=== PATIENT | female | born 1995 | race Caucasian/White ===

== ENCOUNTER → 2021-10-31 | Outpatient (CLI) | payer BC, MEDICAID ==
--- NOTE | 2021-10-31 18:26 | Diagnostic Imaging Report ---
INDICATION: , anatomic survey. TECHNIQUE: Multiple real-time grayscale images were obtained over the gravid uterus. COMPARISON: None. FINDINGS: The cervix measures 6 cm in length with no funneling or endocervical fluid appreciated. There is a single live intrauterine gestation in breech presentation. The placenta is posterior without evidence of previa. The heart rate measures 142 BPM. Amniotic fluid index measures 12.8 cm. Anatomic survey is suboptimal due to maternal body habitus. The bladder is seen. Two umbilical arteries are demonstrated consistent with a three-vessel cord, but the cord is not seen in grayscale transverse. The cord insertion is seen. The upper and lower spine are suboptimally visualized. The profile is not well seen. The four-chamber heart and stomach are not well seen. The brain anatomy, kidneys are not seen. Biometrical measurements are as follows: Biparietal 4.16 cm, age 18 weeks 5 days. Head circumference 16.18 cm, age 19 weeks 0 days. Abdominal circumference 15.73 cm, age 21 weeks 0 days. Femur length 3.55 cm, age 21 weeks 2 days. Sonographic estimate age: 20 weeks 0 days. Sonographic estimated date of delivery: 03/20/2022. Estimated Weight: 373 gm (+/- 55 gm). LMP percentile: 84%. heart rate: 142 beats per minute. number: 1 of 1. IMPRESSION: 1. Single live intrauterine gestation measuring at 20 weeks and 0 days. This is concordant with the given clinical dates. 2. Suboptimal anatomic survey due to maternal habitus with multiple structures not seen. No abnormality is identified. 3. Breech presentation. Dictated by: Dictated on workstation # [id number]
== END ==
LOC: RAD 15:15
PROVIDERS: ATTEND Nurse Practitioner Women's Health
DX: O32.1XX0 Maternal care for breech presentation, not applicable or unspecified (principal); Z3A.20 20 weeks gestation of pregnancy
CPT/HCPCS: 76805

== ENCOUNTER 2022-03-20 06:00 | Inpatient (IN) | payer MEDICAID ==
[~2022-03-20] VITALS: Ht 167.7 cm; Wt 117.7 kg
[2022-03-20] VITALS (60 sets, daily range): BP systolic 86–191; BP diastolic 50–147
[2022-03-20] MEDS ORDERED: PREN-142 PO (06:48)
[2022-03-20 07:07] LABS: BASOPHILS % (AUTO) 0 % (0-10); EOSINOPHILS # (AUTO) 0.1 10^3/uL (0.0-0.3); EOSINOPHILS % (AUTO) 1 % (0-10); HEMATOCRIT 31 % (35-52); HEMOGLOBIN 9.7 g/dL (11.5-16.0); LYMPHOCYTES # (AUTO) 1.9 10^3/uL (1.0-4.0); LYMPHOCYTES % (AUTO) 23 % (12-44); MEAN CORPUSCULAR HEMOGLOBIN 25 pg (25-34); MEAN CORPUSCULAR HGB CONC 32 g/dL (32-36); MEAN CORPUSCULAR VOLUME 79 fL (80-99); MEAN PLATELET VOLUME 11.7 fL (9.0-12.2); MONOCYTES # (AUTO) 0.6 10^3/uL (0.0-1.0); MONOCYTES % (AUTO) 8 % (0-12); NEUTROPHILS # (AUTO) 5.5 10^3/uL (1.8-7.8); NEUTROPHILS % (AUTO) 68 % (42-75); PLATELET COUNT 240 10^3/uL (130-400); WHITE BLOOD COUNT 8.1 10^3/uL (4.3-11.0)
[2022-03-20] MEDS: D5 LR IV SOLUTION 1,000 ML IV SCH ×2 (07:34→14:18)
[2022-03-20] MEDS ORDERED: fentaNYL 2 mcg/ml BUPIVA 0.125 100 ML ONE (08:29)
--- NOTE | 2022-03-20 08:52 | History & Physical-OB ---
OB - Chief Complaint & HPI Date/Time Date of Admission: Date of Admission: Mar 20, 2022 at 06:00 Date seen by a Provider: Mar 20, 2022 Time Seen by a Provider: 08:30 Chief Complaint/History OB-Reason for Admission/Chief: Induction of Labor Hx : 8 Hx Para: 2 Expected Date of Delivery: Mar 20, 2022 Gestational Age in Weeks: 40 Gestational Age in Days: 0 Indication for induction: post dates Other reason for admission: TOLAC Admission Nurse Assessment Rev: Yes History of Labs GBS neg Allergies and Home Medications Allergies Coded Allergies: No Known Drug Allergies (Unverified , 03/20/22) Patient Home Medication List Home Medication List Reviewed: Yes Vit No.124/Iron/FA ( Vitamin Tablet) 27 Mg Iron-800 Mcg Tablet, 1 EACH PO DAILY, (Reported) Entered as Reported by: SIXTO TEJADA on 03/20/22647 Last Action: New Order OB - History Hx of Present Care: Yes Ultrasounds: Normal mid trimester US Obstetrical Complications: None Medical Complications: None Patient Past Medical History n/a OB - Admission Exam Physical Exam Vitals: Vital Signs 03/20/22 03/20/22 07:00 07:35 Temp 36.5 Pulse 86 Resp 18 B/P (MAP) 112/71 (85) Pulse Ox 98 O2 Delivery Room Air HEENT: NCAT Heart: Rhythm Normal Lungs: Clear Abdomen: Gravid Extremities: Normal Reflexes: Normal Cervical Dilatation: 2cm Effacement: 75% Station: -1 Membranes: Intact Heart Rate: 130's Accelerations: Accelerations Present Decelerations: No Decelerations Short Term Variability: Present Utilization Management Rn Variability: Average (6-25) Contractions on Admission: 6-10 Minutes Apart Intensity: Mild Labs Laboratory Tests Test 03/20/22 07:03 Range/Units White Blood Count 8.1 4.3-11.0 10^3/uL Red Blood Count 3.84 3.80-5.11 10^6/uL Hemoglobin 9.7 L 11.5-16.0 g/dL Hematocrit 31 L 35-52 % Mean Corpuscular Volume 79 L 80-99 fL Mean Corpuscular Hemoglobin 25 25-34 pg Mean Corpuscular Hemoglobin Concent 32 32-36 g/dL Red Cell Distribution Width 15.2 H 10.0-14.5 % Platelet Count 240 130-400 10^3/uL Mean Platelet Volume 11.7 9.0-12.2 fL Immature Granulocyte % (Auto) 0 % Neutrophils (%) (Auto) 68 42-75 % Lymphocytes (%) (Auto) 23 12-44 % Monocytes (%) (Auto) 8 0-12 % Eosinophils (%) (Auto) 1 0-10 % Basophils (%) (Auto) 0 0-10 % Neutrophils # (Auto) 5.5 1.8-7.8 10^3/uL Lymphocytes # (Auto) 1.9 1.0-4.0 10^3/uL Monocytes # (Auto) 0.6 0.0-1.0 10^3/uL Eosinophils # (Auto) 0.1 0.0-0.3 10^3/uL Basophils # (Auto) 0.0 0.0-0.1 10^3/uL Immature Granulocyte # (Auto) 0.0 0.0-0.1 10^3/uL OB - Assessment/Plan/Diagnosis Assessment Assessment: induction of labor Admission Dx 26 yo @ 40 weeks TOLAC GBS neg Admission Status: Inpatient Order (span 2 midnights) Reason for Inpatient Admission: IOL at 40 weeks Plan Plan: Induction Induction Method: ALEC LEMUS DO Mar 20, 2022 08:52
[2022-03-20] MEDS ORDERED: BUPIVACAINE 0.25% 30 ML (SENSORCAINE) VIAL ONE (09:08)
[2022-03-20] MEDS ORDERED: OXYTOCIN PRE-MIX DRIP 500 ML IV ONE (09:15)
[2022-03-20] MEDS ORDERED: ONDANSETRON 4 MG/2 ML (SDV) Z0FRAN ONE (09:15)
[2022-03-20] MEDS ORDERED: diphenhydrAMINE 50 MG/ML INJ (BENADRYL) IV PRN (09:45)
[2022-03-20] MEDS ORDERED: NALOXONE 0.4 MG/ML 1 ML (NARCAN) VIAL IV PRN ×3 (09:45→18:00)
[2022-03-20] MEDS ORDERED: LACTATED RINGERS 1,000 ML IV SCH (09:45)
[2022-03-20] MEDS ORDERED: EPIDURAL (fentaNYL 2 MCG/ML BUPIVA 0.125%)100 ML BAG EPI PRN (09:45)
[2022-03-20] MEDS ORDERED: ONDANSETRON 4 MG/2 ML (SDV) Z0FRAN IV PRN (09:45)
[2022-03-20] MEDS ORDERED: METOCLOPRAMIDE INJ 10 MG/2 ML (REGLAN) IV PRN (09:45)
[2022-03-20] MEDS ORDERED: OXYTOCIN PRE-MIX DRIP 500 ML IV SCH ×2 (10:15→18:00)
[2022-03-20] MEDS ORDERED: CATHETER FLUSH 10 ML SYR IV SCH ×2 (14:00→22:00)
[2022-03-20] MEDS ORDERED: LIDOCAINE/EPI 2% 1:200,00 (XYLOCAINE) 10 ML VIAL ONE (17:31)
--- NOTE | 2022-03-20 17:51 | OB Labor & Delivery Record ---
L&D History Date of Service Date of Service: Mar 20, 2022 History Expected Date of Delivery: Mar 20, 2022 Gestational Age in Weeks: 40 Hx : 8 Hx Para: 2 Complications Events: Routine care Operative Indications (Cesarea: N/A-Vaginal Delivery Intrapartal Events: None L&D Stage1 Stage One Onset of Labor - Date: Mar 20, 2022 Monitors and Tracing Monitor Mode: External Heart Rate: 115 Station: -1 Vital Signs VS - Last 72 Hours, by Label 03/20/22 03/20/22 03/20/22 03/20/22 07:00 07:35 08:00 08:05 Temp 36.6 36.5 36.5 Pulse 111 86 86 104 Resp 18 18 18 18 B/P (MAP) 101/55 (70) 112/71 (85) 108/74 (85) Pulse Ox 98 98 O2 Delivery Room Air Room Air Room Air 03/20/22 03/20/22 03/20/22 03/20/22 08:35 09:00 09:05 09:10 Pulse 96 99 88 127 Resp 18 18 18 18 B/P (MAP) 118/77 (91) 122/73 (89) 118/73 (88) 93/51 (65) Pulse Ox 100 99 100 O2 Delivery Room Air Room Air Room Air Room Air 03/20/22 03/20/22 03/20/22 03/20/22 09:11 09:14 09:15 09:17 Pulse 124 115 115 111 Resp 18 18 18 18 B/P (MAP) 86/50 (62) 137/83 (101) 137/83 (101) 158/82 (107) Pulse Ox 100 100 100 O2 Delivery Room Air Room Air Room Air 03/20/22 03/20/22 03/20/22 03/20/22 09:20 09:25 09:30 10:00 Pulse 123 131 122 102 Resp 18 18 18 18 B/P (MAP) 138/85 (102) 125/70 (88) 114/64 (81) 124/74 (91) Pulse Ox 100 100 100 100 O2 Delivery Room Air Room Air Room Air Room Air 03/20/22 03/20/22 03/20/22 03/20/22 10:15 10:30 10:45 11:00 Pulse 106 98 92 94 Resp 18 18 18 18 B/P (MAP) 129/71 (90) 129/71 (90) 118/70 (86) 121/70 (87) Pulse Ox 98 100 98 98 O2 Delivery Room Air Room Air Room Air Room Air 03/20/22 03/20/22 03/20/22 03/20/22 11:15 11:30 11:45 12:00 Pulse 88 105 94 98 Resp 18 18 18 18 B/P (MAP) 129/64 (85) 124/63 (83) 114/67 (83) 113/65 (81) Pulse Ox 96 98 98 97 O2 Delivery Room Air Room Air Room Air Room Air 03/20/22 03/20/22 03/20/22 03/20/22 12:15 12:30 12:45 13:00 Pulse 82 93 100 96 Resp 18 18 18 18 B/P (MAP) 119/69 (86) 122/69 (86) 124/66 (85) 134/62 (86) Pulse Ox 97 99 100 100 O2 Delivery Room Air Room Air Room Air Room Air 03/20/22 03/20/22 03/20/22 03/20/22 13:13 13:15 13:30 13:45 Temp 35.6 Pulse 97 93 85 Resp 18 18 18 B/P (MAP) 114/67 (83) 127/66 (86) 132/57 (82) Pulse Ox 100 97 100 O2 Delivery Room Air Room Air Room Air 03/20/22 03/20/22 03/20/22 03/20/22 14:00 14:15 14:30 14:45 Pulse 90 89 87 98 Resp 18 18 18 18 B/P (MAP) 126/79 (95) 125/74 (91) 129/76 (93) 132/81 (98) Pulse Ox 98 98 99 99 O2 Delivery Room Air Room Air Room Air Room Air 03/20/22 03/20/22 03/20/22 03/20/22 15:00 15:15 15:30 15:45 Pulse 101 100 114 116 Resp 18 18 18 18 B/P (MAP) 127/75 (92) 121/75 (90) 121/84 (96) 120/74 (89) Pulse Ox 100 100 100 100 O2 Delivery Room Air Room Air Room Air Room Air 03/20/22 03/20/22 03/20/22 03/20/22 16:00 16:15 16:30 16:45 Pulse 104 104 88 93 Resp 18 18 18 18 B/P (MAP) 121/82 (95) 121/82 (95) 120/72 (88) 125/74 (91) Pulse Ox 100 100 100 100 O2 Delivery Room Air Room Air Room Air Room Air 03/20/22 17:00 Pulse 98 Resp 18 B/P (MAP) 114/64 (81) Pulse Ox 99 O2 Delivery Room Air Rupture of Membranes Spontaneous Ruture of Membrane: No Amniotic Membrane Rupture Time: 08 Amniotic Membrane Fluid Desc.: Clear Vaginal Bleeding Description: Normal Show Induction/Anesthesia Epidural Cath Placement - Time: 0902 Progress/Notes Patient admitted for TOLAC IOL, AROM performed and pitocin started after epidural placed. She progressed to complete and +1 station with max dose of 16 mu reached. L&D Stage2 Stage Two Stage II Date: Mar 20, 2022 Monitors and Tracing Monitor Mode: External Heart Rate: 115 Monitor Accelerations: Uniform Monitor Decelerations: Variable [facility] Variability: Average (6-10) Short Term Variability: Present Position: Right Occiput Anterior Presentation: Vertex Cord Descript/Complications Cord Vessel Description: 3 Vessels Complications nuchal cord reduced x 2 Delivery Type Infant Delivery Method: Spontaneous Vaginal Anterior Shoulder: Left Episiotomy/Perineal Laceration Laceraction(s)/Extensions: Yes Episiotomy Description: Vaginal Extension/lac, 1st degree Degree (describe repair) repaired using 3-0 rapide in usual fashion Condition of Infant Delivery 1 minute Comment: 9 5 minute Comment: 9 Notes Live female infant weight 7lbs 8 oz Condition of Infant Condition of : Living Exam: No Observed Abnormalities Resuscitation Resuscitation: N/A - Spontaneous Resp L&D Stage3 Stage Three Stage III Date: Mar 20, 2022 Pictocin Pitocin Administration mu/min: 16 Pitocin ml/hr: 16 Pitocin Administration Comment: 30 mu wide open after delivery of placenta Placenta Delivery Placenta Delivery: Spontaneous Delivery Summary Summary Estimated blood loss (mL): 350 Attending at delivery: Alec Gonzales DO Condition of Delivery Examined: Cervix Examined, Uterus Explored Post Hemorrhage: No Condition of Mother stable Condition of Infant (s) stable ALEC GONZALES DO Mar 20, 2022 17:51
--- NOTE | 2022-03-20 17:55 | Discharge Inst-Women's Service ---
Discharge Inst-Women's Serv Depart Medication/Instructions New, Converted or Re-Newed RX: Transmitted to Pharmacy Final Diagnosis PPD 1 Problems Reviewed?: Yes Consults/Follow Up Additional Follow Up: Yes Orders/Referrals Dr. Gonzales/Ghislaine in 6 weeks Activity Activity: Activity as Tolerated Driving Instructions: No Driving for 1 Week NO SMOKING: NO SMOKING Nothing Inside Vagina: No Douching, No Baldwin, No Tampons Diet Discharge Diet: No Restrictions Symptoms to Report to : Bleeding Excessive, Pain Increased, Fever Over 101 Degrees F, Vaginal Bleeding Increase, Questions/Concerns For Any Problems or Questions: Contact Your Physician ALEC GONZALES DO Mar 20, 2022 17:55
[2022-03-20] MEDS ORDERED: BENZOCAINE/MENTHOL (DERMOPLAST) 56 ML CAN TP PRN (18:00)
[2022-03-20] MEDS ORDERED: MEASLES,MUMPS,RUBELLA 1 EA INJ SQ ONE (18:00)
[2022-03-20] MEDS ORDERED: TETANUS,DIPTH,PERTUSS P/F (BOOSTRIX) 0.5 ML VIAL IM ONE (18:00)
[2022-03-20] MEDS ORDERED: WITCH HAZEL(TUCKS) 40 EA JAR TOP PRN (18:00)
[2022-03-20] MEDS ORDERED: HYDROcodone/APAP 5 MG/325 MG (LORTAB) TAB PO PRN (18:00)
[2022-03-20] MEDS ORDERED: BENZ78AE5 TP (18:08)
[2022-03-20] MEDS ORDERED: DOCU100C37 PO (18:08)
[2022-03-20] MEDS ORDERED: ACHD5005 PO (18:08)
[2022-03-20] MEDS ORDERED: FERR325T24 PO (18:08)
[2022-03-20] MEDS ORDERED: IBUP-844 PO (18:08)
[2022-03-20] MEDS: IBUPROFEN 600 MG (MOTRIN) TAB PO SCH ×2 (18:49→23:56)
[2022-03-20] MEDS: DOCUSATE SODIUM 100 MG (COLACE) CAP PO SCH (22:16)
[2022-03-21] MEDS ORDERED: ACETAMINOPHEN 500 MG TAB (TYLENOL) PO PRN (01:45)
[2022-03-21 05:00] VITALS: BP 106/72
[2022-03-21] MEDS: IBUPROFEN 600 MG (MOTRIN) TAB PO SCH ×3 (05:19→19:33)
[2022-03-21 05:37] LABS: BASOPHILS % (AUTO) 0 % (0-10); EOSINOPHILS % (AUTO) 0 % (0-10); HEMATOCRIT 28 % (35-52); HEMOGLOBIN 8.7 g/dL (11.5-16.0); LYMPHOCYTES # (AUTO) 1.7 10^3/uL (1.0-4.0); LYMPHOCYTES % (AUTO) 16 % (12-44); MEAN CORPUSCULAR HEMOGLOBIN 25 pg (25-34); MEAN CORPUSCULAR HGB CONC 31 g/dL (32-36); MEAN CORPUSCULAR VOLUME 82 fL (80-99); MONOCYTES # (AUTO) 0.8 10^3/uL (0.0-1.0); MONOCYTES % (AUTO) 7 % (0-12); NEUTROPHILS # (AUTO) 7.9 10^3/uL (1.8-7.8); NEUTROPHILS % (AUTO) 76 % (42-75); PLATELET COUNT 186 10^3/uL (130-400); WHITE BLOOD COUNT 10.5 10^3/uL (4.3-11.0)
[2022-03-21] MEDS ORDERED: PRENATAL VITAMIN 1 EA TAB PO SCH (07:00)
[2022-03-21 07:55] VITALS: BP 115/58
[2022-03-21] MEDS: DOCUSATE SODIUM 100 MG (COLACE) CAP PO SCH (07:55)
[2022-03-21] MEDS ORDERED: FERROUS SULF 325 MG (IRON) TAB PO SCH (09:00)
--- NOTE | 2022-03-21 09:05 | Anesthesia-Regional Post-Op ---
Regional Patient Condition Mental Status: Alert, Oriented x3 Circulation: Same as Pre-Op Headache: Absent Sensation: Full Recovery Motor Block: Absent Post Op Complications Complications None Follow Up Care/Instructions Patient Instructions None needed. Anesthesia/Patient Condition Patient is doing well, no complaints, stable vital signs, no apparent adverse anesthesia problems. No complications reported per nursing. D/C home per [facility] [place] Criteria: Yes CAROL SERRANO CRNA Mar 21, 2022 09:05
--- NOTE | 2022-03-21 10:09 | Postpartum Progress Note ---
Note Note Day # 1 Subjective: Patient is without complaints. Ambulating, voiding. Tolerating a regular diet without nausea or vomiting. Normal lochia. Pain is well controlled with oral pain medications. Physical Exam: General - Alert and oriented, no apparent distress Abdomen - Soft, appropriately tender to palpation, non-distended, fundus firm at umbilicus Extremities - no edema, negative Liza's bilaterally Assessment: Post- day # 1, status post . Recovering well, hemodynamically stable Acute blood loss anemia Plan: Routine care. Encourage breast feeding. Encourage ambulation. Ferrous sulfate supplementation. Plan for discharge today Vitals - Labs Vital Signs - I&O Vital Signs Date Time Temp Pulse Resp B/P (MAP) Pulse Ox O2 Delivery O2 Flow Rate FiO2 03/21/22 07:55 36.2 85 18 115/58 (77) 98 Room Air 03/21/22 05:00 36.1 83 18 106/72 (83) 96 Room Air 03/20/22 23:56 36.0 96 18 108/59 (75) 96 Room Air 03/20/22 21:30 36.3 96 18 103/56 (72) Room Air 03/20/22 21:00 96 18 101/59 (73) Room Air 03/20/22 20:30 36.6 80 18 128/80 (96) Room Air 03/20/22 20:00 104 18 121/61 (81) Room Air 03/20/22 19:45 109 18 123/58 (79) Room Air 03/20/22 19:30 36.6 102 18 122/57 (78) Room Air 03/20/22 19:15 95 18 131/65 (87) Room Air 03/20/22 19:00 95 18 129/74 (92) Room Air 03/20/22 18:45 36.1 103 18 118/62 (80) Room Air 03/20/22 18:30 100 18 144/71 (95) Room Air 03/20/22 18:15 117 18 138/62 (87) Room Air 03/20/22 18:00 107 18 130/73 (92) Room Air 03/20/22 17:45 106 18 118/56 (76) Room Air 03/20/22 17:44 110 18 191/147 (162) Room Air 7/20/22 17:15 107 18 112/72 (85) 100 Room Air 03/20/22 17:00 98 18 114/64 (81) 99 Room Air 03/20/22 16:45 93 18 125/74 (91) 100 Room Air 03/20/22 16:30 88 18 120/72 (88) 100 Room Air 03/20/22 16:15 104 18 121/82 (95) 100 Room Air 03/20/22 16:00 104 18 121/82 (95) 100 Room Air 03/20/22 15:45 116 18 120/74 (89) 100 Room Air 03/20/22 15:30 114 18 121/84 (96) 100 Room Air 03/20/22 15:15 100 18 121/75 (90) 100 Room Air 03/20/22 15:00 101 18 127/75 (92) 100 Room Air 03/20/22 14:45 98 18 132/81 (98) 99 Room Air 03/20/22 14:30 87 18 129/76 (93) 99 Room Air 03/20/22 14:15 89 18 125/74 (91) 98 Room Air 03/20/22 14:00 90 18 126/79 (95) 98 Room Air 03/20/22 13:45 85 18 132/57 (82) 100 Room Air 03/20/22 13:30 93 18 127/66 (86) 97 Room Air 03/20/22 13:15 97 18 114/67 (83) 100 Room Air 03/20/22 13:13 35.6 03/20/22 13:00 96 18 134/62 (86) 100 Room Air 03/20/22 12:45 100 18 124/66 (85) 100 Room Air 03/20/22 12:30 93 18 122/69 (86) 99 Room Air 03/20/22 12:15 82 18 119/69 (86) 97 Room Air 03/20/22 12:00 98 18 113/65 (81) 97 Room Air 03/20/22 11:45 94 18 114/67 (83) 98 Room Air 03/20/22 11:30 105 18 124/63 (83) 98 Room Air 03/20/22 11:15 88 18 129/64 (85) 96 Room Air 03/20/22 11:00 94 18 121/70 (87) 98 Room Air 03/20/22 10:45 92 18 118/70 (86) 98 Room Air 03/20/22 10:30 98 18 129/71 (90) 100 Room Air 03/20/22 10:15 106 18 129/71 (90) 98 Room Air I & O 03/21/22 07:00 Intake Total 3000 ml Balance 3000 ml Labs Laboratory Tests 03/21/22 05:17: White Blood Count 10.5, Red Blood Count 3.44L, Hemoglobin 8.7L, Hematocrit 28L, Mean Corpuscular Volume 82, Mean Corpuscular Hemoglobin 25, Mean Corpuscular Hemoglobin Concent 31L, Red Cell Distribution Width 15.3H, Platelet Count 186, Mean Platelet Volume 11.0, Immature Granulocyte % (Auto) 0, Neutrophils (%) (Auto) 76H, Lymphocytes (%) (Auto) 16, Monocytes (%) (Auto) 7, Eosinophils (%) (Auto) 0, Basophils (%) (Auto) 0, Neutrophils # (Auto) 7.9H, Lymphocytes # (Auto) 1.7, Monocytes # (Auto) 0.8, Eosinophils # (Auto) 0.0, Basophils # (Auto) 0.0, Immature Granulocyte # (Auto) 0.0 MICK MORALES MOVIE WRITER Mar 21, 2022 10:09
[2022-03-21 16:20] VITALS: BP 128/80
[2022-03-21 19:36] VITALS: BP 113/68
[2022-03-21 20:15] VITALS: BP 113/68
== END 2022-03-21 20:15 | disposition home or self-care (01) | DRG 806 ==
LOC: LDRP 06:00
PROVIDERS: ADMIT Obstetrics & Gynecology; ATTEND Obstetrics & Gynecology
PROC: 10E0XZZ Delivery of Products of Conception, External Approach (ICD-10-PCS; principal; 2022-03-20)
PROC: 10907ZC Drainage of Amniotic Fluid, Therapeutic from Products of Conception, Via Natural or Artificial Opening (ICD-10-PCS; 2022-03-20)
PROC: 3E033VJ Introduction of Other Hormone into Peripheral Vein, Percutaneous Approach (ICD-10-PCS; 2022-03-20)
PROC: 0HQ9XZZ Repair Perineum Skin, External Approach (ICD-10-PCS; 2022-03-20)
DX: O48.0 Post-term pregnancy (principal); D62 Acute posthemorrhagic anemia; Z37.0 Single live birth; Z3A.40 40 weeks gestation of pregnancy; O70.0 First degree perineal laceration during delivery; O69.81X0 Labor and delivery complicated by cord around neck, without compression, not applicable or unspecified; O90.81 Anemia of the puerperium
CPT/HCPCS: 36415; 85025; 86850; 86900; 86901

== ENCOUNTER → 2022-06-06 | Outpatient (CLI) | payer MEDICAID ==
[~2022-06-06] MED LIST: ACHD5005 PO; BENZ78AE5 TP; DOCU100C37 PO; FERR325T24 PO; IBUP-844 PO; PREN-142 PO
== END ==
LOC: LAB FS 14:51
PROVIDERS: ATTEND Obstetrics & Gynecology
DX: Z32.01 Encounter for pregnancy test, result positive (principal)
CPT/HCPCS: 36415; 84702

== ENCOUNTER 2022-06-28 11:52 | Emergency (ER) | payer MEDICAID ==
--- NOTE | 2022-06-28 12:22 | ED GI ---
General Chief Complaint: Rect Problems Stated Complaint: BLOODY STOOL Nursing Triage Note: PT REPORTS SHE HAS BEEN HAVING TROUBLE WITH CONSTIPATION AND THIS AM SHE HAD SOME BRIGHT RED BLOOD IN HER STOOL. History of Present Illness Date Seen by Provider: Jun 28, 2022 Time Seen by Provider: 12:20 Initial Comments 26-year-old female here for complaints of diarrhea abdominal pain and bloody stool this morning. Patient is about 5 weeks . States that she woke up with abdominal pain and bloody stool this morning. Feels the toilet. Did just have a baby in March. Patient does not have any fever but is having some cold chills. Some appetite but feels nauseous as well. No vomiting. Does not feel urinary symptoms. Allergies and Home Medications Allergies Coded Allergies: No Known Drug Allergies (Unverified , 03/20/22) Patient Home Medication List Home Medication List Reviewed: Yes Benzocaine/Menthol (Dermoplast Pain Relieving Ackerman) 20 %-0.5 % Aerosol, 56 EA TP UD PRN for PAIN- SEE INSTRUCTIONS Prescribed by: ALEC GONZALES on 03/20/221807 Docusate Sodium (Docusate Sodium) 100 Mg Capsule, 100 MG PO BID PRN for CONSTIPATION-1ST LINE Prescribed by: ALEC GONZALES on 03/20/221807 Ferrous Sulfate (Ferosul) 325 Mg (65 Mg Iron) Tablet, 325 MG PO DAILY Prescribed by: ALEC GONZALES on 03/20/221807 Hydrocodone Bit/Acetaminophen (HYDROcodone/APAP 5 MG/325 MG TAB) 1 Tab Tab, 1 EA PO Q4H PRN for PAIN-MODERATE (5-7) Prescribed by: ALEC GONZALES on 03/20/221807 Ibuprofen (Ibu) 600 Mg Tablet, 600 MG PO Q6H Prescribed by: ALEC GONZALES on 03/20/221807 Vit No.124/Iron/FA ( Vitamin Tablet) 27 Mg Iron-800 Mcg Tablet, 1 EACH PO DAILY, (Reported) Entered as Reported by: SIXTO TEJADA on 03/20/22 0648 Review of Systems Review of Systems Constitutional: see HPI Past [id number] Hx Patient Social History Tobacco Use?: Yes Tobacco type used: Cigarettes Smoking Status: Current Someday Smoker Use of E-Cig and/or Vaping dev: No Substance use?: No Alcohol Use?: No Pt feels they are or have been: No Immunizations Up To Date First/Initial COVID19 Vaccinat: DATE UNKNOWN Second COVID19 Vaccination Gasper: DATE UNKNOWN Past Medical History Last Menstrual Period: May 24, 2022 Physical Exam Vital Signs Vital Signs - First Documented 06/28/22 12:01 Temp 36.0 Pulse 87 Resp 16 B/P (MAP) 141/79 (99) Pulse Ox 99 O2 Delivery Room Air Capillary Refill : Less Than 3 Seconds Height/Weight/BMI Height: '" Weight: lbs. oz. kg; 41.85 BMI Method: General Appearance: WD/WN, no apparent distress HEENT: PERRL/EOMI, pharynx normal Respiratory: chest non-tender, lungs clear Cardiovascular: regular rate, rhythm, no murmur Gastrointestinal: tenderness (Lower abdomen) Neurologic/Psychiatric: alert, normal mood/affect Skin: normal color, warm/dry Progress/Results/Core Measures Results/Orders Lab Results Laboratory Tests Test 06/28/22 12:35 06/28/22 13:00 Range/Units White Blood Count 12.0 H 4.3-11.0 10^3/uL Red Blood Count 4.50 3.80-5.11 10^6/uL Hemoglobin 11.7 11.5-16.0 g/dL Hematocrit 35 35-52 % Mean Corpuscular Volume 79 L 80-99 fL Mean Corpuscular Hemoglobin 26 25-34 pg Mean Corpuscular Hemoglobin Concent 33 32-36 g/dL Red Cell Distribution Width 15.9 H 10.0-14.5 % Platelet Count 271 130-400 10^3/uL Mean Platelet Volume 10.9 9.0-12.2 fL Immature Granulocyte % (Auto) 0 % Neutrophils (%) (Auto) 88 H 42-75 % Lymphocytes (%) (Auto) 8 L 12-44 % Monocytes (%) (Auto) 3 0-12 % Eosinophils (%) (Auto) 0 0-10 % Basophils (%) (Auto) 0 0-10 % Neutrophils # (Auto) 10.5 H 1.8-7.8 10^3/uL Lymphocytes # (Auto) 0.9 L 1.0-4.0 10^3/uL Monocytes # (Auto) 0.4 0.0-1.0 10^3/uL Eosinophils # (Auto) 0.0 0.0-0.3 10^3/uL Basophils # (Auto) 0.0 0.0-0.1 10^3/uL Immature Granulocyte # (Auto) 0.0 0.0-0.1 10^3/uL Neutrophils % (Manual) 89 % Lymphocytes % (Manual) 6 % Monocytes % (Manual) 4 % Band Neutrophils 1 % Platelet Estimate NORMAL Microcytosis 1+ Sodium Level 136 135-145 MMOL/L Potassium Level 3.8 3.6-5.0 MMOL/L Chloride Level 104 98-107 MMOL/L Carbon Dioxide Level 20 L 21-32 MMOL/L Anion Gap 12 5-14 MMOL/L Blood Urea Nitrogen 10 7-18 MG/DL Creatinine 0.58 L 0.60-1.30 MG/DL Estimat Glomerular Filtration Rate 127 BUN/Creatinine Ratio 17 Glucose Level 113 H 70-105 MG/DL Calcium Level 8.8 8.5-10.1 MG/DL Corrected Calcium 8.7 8.5-10.1 MG/DL Total Bilirubin 0.3 0.1-1.0 MG/DL Aspartate Amino Transf (AST/SGOT) 20 5-34 U/L Alanine Aminotransferase (ALT/SGPT) 21 0-55 U/L Alkaline Phosphatase 76 40-136 U/L Total Protein 7.3 6.4-8.2 GM/DL Albumin 4.1 3.2-4.5 GM/DL Lipase 18 8-78 U/L Serum Test, Qualitative POSITIVE NEGATIVE Urine Color YELLOW Urine Clarity SL CLOUDY Urine pH 5.5 5-9 Urine Specific [place] 1.015 L 1.016-1.022 Urine Protein NEGATIVE NEGATIVE Urine Glucose (UA) NEGATIVE NEGATIVE Urine Ketones TRACE H NEGATIVE Urine Nitrite NEGATIVE NEGATIVE Urine Bilirubin NEGATIVE NEGATIVE Urine Urobilinogen 0.2 < = 1.0 MG/DL Urine Leukocyte Esterase NEGATIVE NEGATIVE Urine RBC (Auto) NEGATIVE NEGATIVE Urine RBC NONE /HPF Urine WBC RARE /HPF Urine Squamous Epithelial Cells 10-25 H /HPF Urine Crystals NONE /LPF Urine Bacteria NEGATIVE /HPF Urine Casts NONE /LPF Urine Mucus SMALL H /LPF Urine Culture Indicated NO My Orders Orders - ELIDA BRINK MD Cbc And Manual Diff (06/28/22 12:21) Comprehensive Metabolic Panel (06/28/22 12:21) Lipase (06/28/22 12:21) Occult Blood Stool (06/28/22 12:21) Hcg,Qualitative Serum (06/28/22 12:21) Urinalysis (06/28/22 13:01) Acetaminophen Tablet/Caplet (Tylenol T (06/28/22 13:30) Medications Given in ED Vital Signs/I&O 06/28/22 06/28/22 12:01 14:44 Temp 36.0 36.0 Pulse 87 72 Resp 16 16 B/P (MAP) 141/79 (99) 132/76 Pulse Ox 99 99 O2 Delivery Room Air Room Air Blood Pressure Mean: 99 Progress Progress Note : Time: 14:30 Progress Note no gross blood per evaluate. hemmocult was positive. unable to do CT/Xray due to . recommend pcm follow up. if gross blood returns, return to ER. Diagnostic Imaging Diagonstic Imaging: Ultrasound Departure Impression Primary Impression: Blood in stool Additional Impression: Abdominal pain Qualified Codes: R10.30 - Lower abdominal pain, unspecified Disposition: 01 HOME, SELF-CARE Condition: Stable Departure-Patient Inst. Decision time for Depature: 14:44 Referrals: NO,LOCAL PHYSICIAN (PCP/Family) Primary Care Physician Patient Instructions: Abdominal Pain, Adult ED, Bloody Stools, Adult ED Add. Discharge Instructions: Tylenol for pain. Get ultrasound done. Follow-up with primary care doctor. ER as needed All discharge instructions reviewed with patient and/or family. Voiced understanding. ELIDA BRINK MD Jun 28, 2022 12:22
[2022-06-28 12:41] LABS: BASOPHILS % (AUTO) 0 % (0-10); EOSINOPHILS % (AUTO) 0 % (0-10); HEMATOCRIT 35 % (35-52); HEMOGLOBIN 11.7 g/dL (11.5-16.0); LYMPHOCYTES # (AUTO) 0.9 10^3/uL (1.0-4.0); LYMPHOCYTES % (AUTO) 8 % (12-44); MEAN CORPUSCULAR HEMOGLOBIN 26 pg (25-34); MEAN CORPUSCULAR HGB CONC 33 g/dL (32-36); MEAN CORPUSCULAR VOLUME 79 fL (80-99); MEAN PLATELET VOLUME 10.9 fL (9.0-12.2); MONOCYTES # (AUTO) 0.4 10^3/uL (0.0-1.0); MONOCYTES % (AUTO) 3 % (0-12); NEUTROPHILS # (AUTO) 10.5 10^3/uL (1.8-7.8); NEUTROPHILS % (AUTO) 88 % (42-75); PLATELET COUNT 271 10^3/uL (130-400)
[2022-06-28 12:55] LABS: BAND NEUTROPHILS 1 %; LYMPHOCYTES % (MANUAL) 6 %; MONOCYTES % (MANUAL) 4 %; NEUTROPHILS % (MANUAL) 89 %
[2022-06-28 12:56] LABS: MICROCYTOSIS 1+; PLATELET ESTIMATE NORMAL
[2022-06-28 13:04] LABS: ALBUMIN 4.1 GM/DL (3.2-4.5); BILIRUBIN,TOTAL 0.3 MG/DL (0.1-1.0); CALCIUM 8.8 MG/DL (8.5-10.1); CREATININE SERUM 0.58 MG/DL (0.60-1.30); POTASSIUM 3.8 MMOL/L (3.6-5.0); TOTAL PROTEIN 7.3 GM/DL (6.4-8.2)
[2022-06-28 13:22] LABS: BILIRUBIN,URINE NEGATIVE (NEGATIVE); CLARITY,URINE SL CLOUDY; COLOR,URINE YELLOW; GLUCOSE, URINE (UA) NEGATIVE (NEGATIVE); KETONES,URINE TRACE (NEGATIVE); LEUKOCYTE ESTERASE ,URINE NEGATIVE (NEGATIVE); NITRITE,URINE NEGATIVE (NEGATIVE); PH,URINE 5.5 (5-9); PROTEIN,URINE NEGATIVE (NEGATIVE)
[2022-06-28 13:29] LABS: BACTERIA,URINE NEGATIVE /HPF; WBC,URINE RARE /HPF
[2022-06-28] MEDS ORDERED: ACETAMINOPHEN 325 MG TABLET PO ONE (13:30)
[2022-06-28 14:44] VITALS: BP 132/76
== END 2022-06-28 14:46 | disposition home or self-care (01) ==
LOC: EDUNIT# 11:52 → ER FS 11:54
DX: O99.611 Diseases of the digestive system complicating pregnancy, first trimester (principal); K92.1 Melena; O26.891 Other specified pregnancy related conditions, first trimester; R10.30 Lower abdominal pain, unspecified; O99.331 Smoking (tobacco) complicating pregnancy, first trimester; F17.210 Nicotine dependence, cigarettes, uncomplicated; Z3A.01 Less than 8 weeks gestation of pregnancy
CPT/HCPCS: 80053; 81000; 82274; 83690; 84703; 85027

== ENCOUNTER 2022-08-09 20:53 | Emergency (ER) | payer MEDICAID ==
[~2022-08-09] VITALS: Ht 168 cm; Wt 117.7 kg
[2022-08-09 21:38] LABS: BASOPHILS % (AUTO) 0 % (0-10); EOSINOPHILS # (AUTO) 0.1 10^3/uL (0.0-0.3); EOSINOPHILS % (AUTO) 1 % (0-10); HEMATOCRIT 34 % (35-52); HEMOGLOBIN 11.1 g/dL (11.5-16.0); LYMPHOCYTES # (AUTO) 1.9 10^3/uL (1.0-4.0); LYMPHOCYTES % (AUTO) 20 % (12-44); MEAN CORPUSCULAR HEMOGLOBIN 26 pg (25-34); MEAN CORPUSCULAR HGB CONC 33 g/dL (32-36); MEAN CORPUSCULAR VOLUME 81 fL (80-99); MEAN PLATELET VOLUME 10.1 fL (9.0-12.2); MONOCYTES # (AUTO) 0.5 10^3/uL (0.0-1.0); MONOCYTES % (AUTO) 5 % (0-12); NEUTROPHILS % (AUTO) 74 % (42-75); PLATELET COUNT 248 10^3/uL (130-400); WHITE BLOOD COUNT 9.6 10^3/uL (4.3-11.0)
[2022-08-09 21:51] LABS: INR 0.9 (0.8-1.4); PROTHROMBIN TIME PATIENT 12.9 SEC (12.2-14.7)
[2022-08-09 21:56] LABS: ALBUMIN 4.1 GM/DL (3.2-4.5); BILIRUBIN,TOTAL 0.2 MG/DL (0.1-1.0); CREATININE SERUM 0.71 MG/DL (0.60-1.30); POTASSIUM 3.4 MMOL/L (3.6-5.0); TOTAL PROTEIN 7.2 GM/DL (6.4-8.2)
[2022-08-09] MEDS ORDERED: NS IV 1000 ML 1,000 ML IV SCH (22:00)
--- NOTE | 2022-08-09 22:04 | ED GU-Female ---
General Chief Complaint: OB < 20 WEEKS Stated Complaint: MISCARRIAGE PASSING LARGE CLOTS Nursing Triage Note: reports approx. 6 weeks with vaginal bleeding x1 week. bleeding worsened tonight approx. 1700. pt repots using 4 pads since 1700. Source: patient Exam Limitations: no limitations (KYLE DALY APRN) History of Present Illness Date Seen by Provider: Aug 09, 2022 Time Seen by Provider: 21:15 Initial Comments Patient is a 26-year-old female who presents to the emergency department for evaluation of worsening vaginal bleeding and lower abdominal cramping. Patient is a G9, P3 female who is currently . She is unsure of her gestational development at this time. She gave on March 20 and never had a period between then and when her positive test was noted. She states she did have an ultrasound at her [facility]'s office on July 16 that noted intrauterine twin . She states that they were unable to give her an estimation of her gestation at that time. She states that she began having some light pink vaginal discharge on Friday but it significantly increased at approximately 5 PM tonight. She states she has passed several clots and saturated 4-5 pads since the bleeding began. She states she has also had some lightheadedness. She denies any significant shortness of air, syncope, vision change. 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 She denies any history of coagulopathies or bleeding diatheses. She is currently not on any anticoagulants and states the only medicine she takes normally is vitamins. Dr. Albarado is her primary [facility] who she last saw at the appointment where her ultrasound was obtained on July 16. She states she has a follow-up appointment on August 15 where they are reportedly going to obtain another ultrasound. (KYLE DALY APRN) Allergies and Home Medications Allergies Coded Allergies: No Known Drug Allergies (Unverified , 03/20/22) Patient Home Medication List Home Medication List Reviewed: Yes (KYLE DALY APRN) Benzocaine/Menthol (Dermoplast Pain Relieving [place]) 20 %-0.5 % Aerosol, 56 EA TP UD PRN for PAIN- SEE INSTRUCTIONS Prescribed by: ALEC ALBARADO on 03/20/221807 Docusate Sodium (Docusate Sodium) 100 Mg Capsule, 100 MG PO BID PRN for CONSTIPATION-1ST LINE Prescribed by: ALEC ALBARADO on 03/20/221807 Ferrous Sulfate (Ferosul) 325 Mg (65 Mg Iron) Tablet, 325 MG PO DAILY Prescribed by: ALEC ALBARADO on 03/20/221807 Hydrocodone Bit/Acetaminophen (HYDROcodone/APAP 5 MG/325 MG TAB) 1 Tab Tab, 1 EA PO Q4H PRN for PAIN-MODERATE (5-7) Prescribed by: ALEC ALBARADO on 03/20/221807 Ibuprofen (Ibu) 600 Mg Tablet, 600 MG PO Q6H Prescribed by: ALEC ALBARADO on 03/20/221807 Vit No.124/Iron/FA ( Vitamin Tablet) 27 Mg Iron-800 Mcg Tablet, 1 EACH PO DAILY, (Reported) Entered as Reported by: SIXTO TEJADA on 03/20/22 0648 Review of Systems Review of Systems Constitutional: see HPI, dizziness (lightheadedness) EENTM: no symptoms reported Respiratory: no symptoms reported Cardiovascular: no symptoms reported Gastrointestinal: no symptoms reported Genitourinary: see HPI Musculoskeletal: no symptoms reported Skin: no symptoms reported Psychiatric/Neurological: No Symptoms Reported Endocrine: No Symptoms Reported (KYLE DALY APRN) Past Zjtasnv-Wqhmcc-Epmxkd Hx Patient Social History Tobacco Use?: No Substance use?: No Alcohol Use?: No Pt feels they are or have been: No (KYLE DALY APRN) Immunizations Up To Date First/Initial COVID19 Vaccinat: x2 Second COVID19 Vaccination [place]: DATE UNKNOWN (KYLE DALY APRN) Past Medical History Surgery/Hospitalization HX: d&c x2m (KYLE DALY APRN) Physical Exam Vital Signs Vital Signs - First Documented 08/09/22 21:11 Temp 36.6 Pulse 90 Resp 16 B/P (MAP) 121/79 (93) Pulse Ox 99 O2 Delivery Room Air (SOCORRO COLEMAN MD) Vital Signs Capillary Refill : Less Than 3 Seconds (KYLE DALY APRN) Height, Weight, BMI Height: '" Weight: lbs. oz. kg; 41.00 BMI Method: General Appearance: WD/WN, no apparent distress HEENT: PERRL/EOMI, normal ENT inspection, TMs normal, pharynx normal Neck: non-tender, full range of motion, supple, normal inspection Cardiovascular: tachycardia Respiratory: chest non-tender, lungs clear, normal breath sounds, no respiratory distress, no accessory muscle use Gastrointestinal: normal bowel sounds, non tender, soft, no organomegaly, no pulsatile mass Extremities: normal range of motion, non-tender, normal inspection, no pedal edema, no calf tenderness Neurologic/Psychiatric: no motor/sensory deficits, alert, normal mood/affect, oriented x 3 Skin: normal color, warm/dry (KYLE DALY APRN) Progress/Results/Core Measures Suspected Sepsis SIRS Temperature: Pulse: 90 Respiratory Rate: 16 Laboratory Tests 08/09/22 21:30: White Blood Count 9.6 Blood Pressure 121 /79 Mean: 93 Laboratory Tests 08/09/22 21:30: Creatinine 0.71, INR Comment 0.9, Platelet Count 248, Total Bilirubin 0.2 (KYLE DALY APRN) Results/Orders Lab Results Laboratory Tests Test 08/09/22 21:30 Range/Units White Blood Count 9.6 4.3-11.0 10^3/uL Red Blood Count 4.20 3.80-5.11 10^6/uL Hemoglobin 11.1 L 11.5-16.0 g/dL Hematocrit 34 L 35-52 % Mean Corpuscular Volume 81 80-99 fL Mean Corpuscular Hemoglobin 26 25-34 pg Mean Corpuscular Hemoglobin Concent 33 32-36 g/dL Red Cell Distribution Width 14.3 10.0-14.5 % Platelet Count 248 130-400 10^3/uL Mean Platelet Volume 10.1 9.0-12.2 fL Immature Granulocyte % (Auto) 1 % Neutrophils (%) (Auto) 74 42-75 % Lymphocytes (%) (Auto) 20 12-44 % Monocytes (%) (Auto) 5 0-12 % Eosinophils (%) (Auto) 1 0-10 % Basophils (%) (Auto) 0 0-10 % Neutrophils # (Auto) 7.0 1.8-7.8 10^3/uL Lymphocytes # (Auto) 1.9 1.0-4.0 10^3/uL Monocytes # (Auto) 0.5 0.0-1.0 10^3/uL Eosinophils # (Auto) 0.1 0.0-0.3 10^3/uL Basophils # (Auto) 0.0 0.0-0.1 10^3/uL Immature Granulocyte # (Auto) 0.1 0.0-0.1 10^3/uL Prothrombin Time 12.9 12.2-14.7 SEC INR Comment 0.9 0.8-1.4 Activated Partial Thromboplast Time 30 24-35 SEC Sodium Level 137 135-145 MMOL/L Potassium Level 3.4 L 3.6-5.0 MMOL/L Chloride Level 104 98-107 MMOL/L Carbon Dioxide Level 21 21-32 MMOL/L Anion Gap 12 5-14 MMOL/L Blood Urea Nitrogen 12 7-18 MG/DL Creatinine 0.71 0.60-1.30 MG/DL Estimat Glomerular Filtration Rate 119 BUN/Creatinine Ratio 17 Glucose Level 108 H 70-105 MG/DL Calcium Level 9.0 8.5-10.1 MG/DL Corrected Calcium 8.9 8.5-10.1 MG/DL Total Bilirubin 0.2 0.1-1.0 MG/DL Aspartate Amino Transf (AST/SGOT) 17 5-34 U/L Alanine Aminotransferase (ALT/SGPT) 15 0-55 U/L Alkaline Phosphatase 66 40-136 U/L Total Protein 7.2 6.4-8.2 GM/DL Albumin 4.1 3.2-4.5 GM/DL Human Chorionic Gonadotropin, Quant 6448 H <5 MIU/ML (SOCORRO COLEMAN MD) Vital Signs/I&O 08/09/22 21:11 Temp 36.6 Pulse 90 Resp 16 B/P (MAP) 121/79 (93) Pulse Ox 99 O2 Delivery Room Air 08/10/22 00:00 Intake Total 1000 ml Balance 1000 ml (SOCORRO COLEMAN MD) Vital Signs/I&O Capillary Refill : Less Than 3 Seconds (KYLE DALY APRN) Blood Pressure Mean: 93 Progress Note : Progress Note Patient is nontoxic and well-hydrated on exam. She is noted to be tachycardic into the 120s upon arrival to the room. No mucosal pallor, weak peripheral pulses, or hypotension noted on initial evaluation. Outside of the tachycardia patient's vital signs are reassuring. Her abdominal exam is reassuring without focal provocation of pain with palpation or distention/rigidity. Will obtain labs and closely monitor. Laboratory evaluation notable for very mild anemia with a hemoglobin of 11.1. Laboratory evaluation is largely unremarkable otherwise. Coagulation studies all within normal limits. She was given a liter of normal saline. Her tachycardia had significantly improved prior to the normal saline bolus. She does still endorse intermittent lower abdominal cramping. Quantitative hCG is over 6000. Given she has an uncertain gestation given she had no LMP between last childbirth and current as well as previously established intrauterine gestation, we will obtain an ultrasound to assess for demise. Review of blood bank reports from March 20 show patient is O+ blood type and will not require RhoGAM. Patient was handed off to Dr. Coleman for further oversight of care as my shift is ending. All pertinent HPI, assessment findings, and diagnostic results to this point were discussed. (KYLE DALY APRN) Progress Note : Time: 01:27 Progress Note Care of this patient was assumed from Kyle Daly at the conclusion of his shift. Patient is stable at this time and declines any physical needs or medications. Bleeding appears controlled. Ultrasound report was received and was reviewed. Miscarriage was discussed with the patient. See discharge instructions for further discussion. (SOCORRO COLEMAN MD) Diagnostic Imaging Diagonstic Imaging: Ultrasound Plain Films/CT/US/NM/MRI: pelvis Comments [facility] ultrasound report was reviewed and reads as follows: "Flattened and elongated twin gestational sacs in the lower endometrial and upper endocervical canal consistent with spontaneous in progress. No pole or heart tones are detected." (SOCORRO COLEMAN MD) Departure Impression Primary Impression: Spontaneous miscarriage Disposition: HOME, SELF-CARE Condition: Improved Departure-Patient Inst. Decision time for Depature: 01:22 (SOCORRO COLEMAN MD) Referrals: ALEC ALBARADO DO (PCP) Primary Care Physician NO,LOCAL PHYSICIAN (Family) Primary Care Physician Patient Instructions: Dealing With Miscarriage, Loss (Miscarriage) ED Add. Discharge Instructions: You are presently experiencing a spontaneous miscarriage. Drink plenty of clear liquids to stay well-hydrated and try to eat a well- balanced diet for good nutrition. You may take ibuprofen up to 600 mg every 6 hours and/or Tylenol (acetaminophen) up to 1000 mg every 6 hours as needed for pain. Contact Dr. ALBARADO's office on Friday for follow-up instructions. He may wish to repeat ultrasound and/or hormone test. Return to emergency care if you have uncontrolled bleeding, secondary symptoms of anemia such as shortness of breath or lightheadedness, fever, vomiting, or other notable symptoms. All discharge instructions reviewed with patient and/or family. Voiced un derstanding. KYLE DALY APRN Aug 09, 2022 22:04 SOCORRO COLEMAN MD Aug 10, 2022 01:26
[2022-08-10 01:30] VITALS: BP 139/91
--- NOTE | 2022-08-10 07:06 | Diagnostic Imaging Report ---
INDICATION: lower abd cramping/vaginal bleeding; assess for demise. Reportedly confirmed twin in [facility] office last month. TECHNIQUE: Multiple real time rubio scale sonographic images were obtained of the pelvis transabdominally and transvaginally. CORRELATION STUDY: None FINDINGS: Uterus 9.5 x 5.0 x 6.2 cm. There is an elongated oval cystic structure in the lower endometrial canal, upper endocervical canal. Septation is noted within it. No discrete pole or heart tones are not detected. No identified placenta. Right ovary 2.6 x 1.2 x 1.8 cm, left ovary 3.0 x 1.9 x 2.5 cm. 2.6 cm simple cyst left ovary. Doppler blood flow is present both ovaries. No abnormal pelvic fluid collection. IMPRESSION: 1.Elongated, somewhat flattened, septated cystic collection lower endometrial and upper endocervical canal. Findings most consistent with likely spontaneous in progress. No discrete pole or heart tones detected. Initial report was provided by Ned. Dictated by: Dictated on workstation # [id number]
== END 2022-08-10 01:33 | disposition home or self-care (01) ==
LOC: EDUNIT# 20:53 → ER 20:55
DX: O03.9 Complete or unspecified spontaneous abortion without complication (principal); R00.0 Tachycardia, unspecified; D64.9 Anemia, unspecified
CPT/HCPCS: 36415; 76801; 76817; 80053; 84702; 85025; 85610; 85730